=== PATIENT | male | born 1975 | race Hispanic/Latino ===

== ENCOUNTER 2020-08-05 17:33 | Emergency (ER) | payer SELFPAY ==
[~2020-08-05] VITALS: Ht 157.5 cm; Wt 83.0 kg
[2020-08-05 18:16] LABS: HEMATOCRIT 42.9 % (39.0-50.0); HEMOGLOBIN 14.4 g/dl (14.0-18.0); IMMATURE GRANULOCYTES 0.3 % (0.0-5.0); MEAN CELL VOLUME 92.3 fL CALC (80.0-100.0); MEAN CORPUSCULAR HGB CONC 33.6 g/dL CAL (32.0-36.0); NEUT# 4.59 thou/uL (1.82-7.42); RED BLOOD COUNT 4.65 mill/uL (4.70-6.10)
[2020-08-05 18:40] LABS: ALBUMIN 3.8 g/dL (3.2-5.0); ALKALINE PHOSPHATASE 55 u/l (38-126); ANION GAP 11 (6-22 (CALC)); BILIRUBIN, TOTAL 0.8 mg/dL (0.0-1.4); BUN 14 mg/dL (9-20); BUN/CREATININE RATIO 18 (12-20 (CALC)); CARBON DIOXIDE 27 mmol/l (22-30); CHLORIDE 101 mmol/l (95-108); CREATININE 0.8 mg/dL (0.7-1.3); GFR > 60 ML/MIN (>=60 (CALC)); GFR FOR AFR.AMER. > 60 ML/MIN (>=60 (CALC)); POTASSIUM 4.1 mmol/l (3.5-5.1); SGOT/AST 55 u/l (17-59); SODIUM 135 mmol/l (137-146); TOTAL PROTEIN 7.1 g/dL (6.3-8.2)
[2020-08-05 18:42] LABS: ACT PARTIAL THROMBO TIME 28.2 SECONDS (20.0-32.5); PROTHROMBIN TIME 9.7 SECONDS (9.0-12.5)
[2020-08-05] MEDS ORDERED: DECADRON4 MG PO (18:53)
[2020-08-05] MEDS ORDERED: VENTOLIN HFA IN (18:53)
[2020-08-05 19:31] VITALS: BP 95/63
--- NOTE | 2020-08-07 12:29 | NUR ---
Unable to notify patient of positive Covid results. [phone]:no answer and "call cannot be completed" is heard. No voice mail. Notified Karie at [facility] that we are unable to notify patients of Covid results.
== END 2020-08-05 19:31 | disposition home or self-care (01) | DRG 177 ==
LOC: ED 17:33
PROVIDERS: Student in an Organized Health Care Education/Training Program
DX: U07.1 COVID-19 (principal); J12.89 Other viral pneumonia